=== PATIENT | male | born 1955 | race Caucasian/White ===

== ENCOUNTER 2023-07-23 08:08 | Emergency (ER) | payer OTHER ==
[~2023-07-23] VITALS: Ht 177.8 cm; Wt 131.8 kg
[2023-07-23] MEDS ORDERED: BOOSTRIX VACCINE (TETANUS/DIPHTH/ACEL. PERTUSSIS) 0.5ML SYR IM.IMMUN ONE (09:05)
[2023-07-23 09:07] VITALS: TEMP 96.5
[2023-07-23 09:23] VITALS: O2SAT 95
[2023-07-23 09:36] LABS: BASO % 0.6 % (0.0-1.0); EOS % 0.4 % (0.0-3.0); HEMATOCRIT 45.7 % (42.0-52.0); HEMOGLOBIN 15.6 g/dl (13.5-17.5); LYMPH # 1.5 10^3/uL (1.5-5.0); LYMPH % 21.9 % (24.0-44.0); MEAN CORPUSCULAR HEMOGLOBIN 31.7 pg (27.0-33.0); MEAN CORPUSCULAR HGB CONC 34.1 g/dl (32.0-36.5); MEAN CORPUSCULAR VOLUME 92.9 fl (80.0-96.0); MONO # 0.5 10^3/uL (0.0-0.8); NEUTROPHILS # 4.7 10^3/uL (1.5-8.5); NEUTROPHILS % 68.9 % (36.0-66.0); PLATELET COUNT, AUTOMATED 262 10^3/uL (150-450); RED BLOOD COUNT 4.92 10^6/uL (4.30-6.10); WHITE BLOOD COUNT 6.8 10^3/uL (4.0-10.0)
[2023-07-23 09:38] VITALS: BP 132/85
[2023-07-23 09:49] LABS: INR 1.2; PROTHROMBIN TIME 14.8 SECONDS (12.5-14.5)
[2023-07-23 09:56] LABS: BLOOD UREA NITROGEN 20 MG/DL (9-23); CALCIUM LEVEL 9.1 MG/DL (8.3-10.6); CARBON DIOXIDE LEVEL 28 MMOL/L (20-31); CHLORIDE LEVEL 104 MMOL/L (98-107); CREATININE FOR GFR 0.88 MG/DL (0.70-1.30); GLOMERULAR FILTRATION RATE > 60.0 (>49); GLUCOSE, FASTING 139 MG/DL (74-106); POTASSIUM SERUM 4.8 MMOL/L (3.5-5.1); SODIUM LEVEL 139 MMOL/L (136-145)
[2023-07-23] MEDS ORDERED: ONDANSETRON 4MG 2ML VIAL IV ONE (10:05)
== END 2023-07-23 10:17 | disposition short-term general hospital (02) ==
LOC: M ED 08:08 → EDBD 08:08 → M ED 10:17
DX: S06.5X1A Traumatic subdural hemorrhage with loss of consciousness of 30 minutes or less, initial encounter (principal); W10.8XXA Fall (on) (from) other stairs and steps, initial encounter; W22.8XXA Striking against or struck by other objects, initial encounter; Y92.9 Unspecified place or not applicable; Y93.9 Activity, unspecified; Y99.0 Civilian activity done for income or pay; I10 Essential (primary) hypertension; K21.9 Gastro-esophageal reflux disease without esophagitis; E66.9 Obesity, unspecified
CPT/HCPCS: 70450; 72125; 80048; 85025; 85610; 85730; 87635; 90471; 90715; 96374; 99284; J2405